=== PATIENT | male | born 1960 | race Caucasian/White ===

== ENCOUNTER 2016-05-03 14:44 | Emergency (ER) | payer SELFPAY ==
[~2016-05-03 14:44] MED LIST: MEDR4PAK3 PO
[2016-05-03 14:46] VITALS: BP 156/95; PULSE 91; RESP 18; TEMP 98.2; O2SAT 98
[2016-05-03] MEDS ORDERED: methylPREDNISolone SOD SUCC 125 MG/2 ML VIAL IM ONE (15:30)
--- NOTE | 2016-05-03 15:42 | PD ---
HPI Chief Complaint: Allergic/Adverse Reaction Time Seen by Provider: 15:37 Travel History International Travel<30 days: No Contact w/Intl Traveler<30days: No Traveled to known affect area: No History of Present Illness HPI Patient is a 55-year-old male presenting to the emergency department for evaluation of possible allergic reaction. Patient states he woke up this morning with throat tightness at approximately 7 AM. He denies any shortness of breath, cough, rash or itching. He states that he had trouble with allergies in the past however he states he is unsure exactly what he is allergic to. He reports that every 2-3 months he'll have swelling on his face or on his lips or break out in hives. This morning he just woke up with that feeling in his throat prior to eating or drinking anything. PFSH Past Medical History Medical History: Denies Significant Hx Past Surgical History Surgical History: No Previous Surgery Social History Tobacco Use: Yes Allergies-Medications (Allergen,Severity, Reaction): Coded Allergies: No Known Allergies (Unverified , 05/03/16) Reported Meds & Prescriptions Reported Meds & Active Scripts Active Benadryl Allergy (Diphenhydramine HCl) 25 Mg Tab 25 Mg PO Q6H PRN 5 Days Adrenaclick Inj Pack (Epinephrine) 0.3 Mg/0.3 Ml Pfpen 0.3 Mg IM ONCE PRN Deltasone (Prednisone) 20 Mg Tab 20 Mg PO BID 5 Days Review of Systems Except as stated in HPI: all other systems reviewed are Neg General / Constitutional: No: Fever HENT: Positive: Neck Pain (fullness) Respiratory: No: Cough, Shortness of Breath, Wheezing Musculoskeletal: No: Myalgias Skin: No Rash, No Itching, No Hives Physical Exam Narrative GENERAL: Well developed, well-nourished, alert male. Resting comfortably in no acute distress. SKIN: Warm and dry. HEAD: Atraumatic. Normocephalic. EYES: Pupils equal and round. No scleral icterus. No injection or drainage. ENT: No nasal bleeding or discharge. Mucous membranes pink and moist. NECK: Trachea midline. No JVD. CARDIOVASCULAR: Regular rate and rhythm. No murmur appreciated. RESPIRATORY: No accessory muscle use. Clear to auscultation. Breath sounds equal bilaterally. GASTROINTESTINAL: Abdomen soft, non-tender, nondistended. Hepatic and splenic margins not palpable. MUSCULOSKELETAL: No obvious deformities. No clubbing. No cyanosis. No edema. NEUROLOGICAL: Awake and alert. No obvious cranial nerve deficits. Motor grossly within normal limits. Normal speech. PSYCHIATRIC: Appropriate mood and affect; insight and judgment normal. Data Data Last Documented VS Vital Signs Date Time Temp Pulse Resp B/P Pulse Ox O2 Delivery O2 Flow Rate FiO2 05/03/16 19:08 63 20 122/75 99 05/03/16 17:47 Room Air 05/03/16 14:46 98.2 Orders Basic Metabolic Panel (Bmp) (05/03/16 15:30) Complete Blood Count With Diff (05/03/16 15:30) Methylprednisolone So Succ Inj (Solumedr (05/03/16 15:30) Diphenhydramine Inj (Benadryl Inj) (05/03/16 17:45) Famotidine Inj (Pepcid Inj) (05/03/16 17:45) Labs Laboratory Tests Test 05/03/16 15:40 White Blood Count 7.5 TH/MM3 Red Blood Count 4.79 MIL/MM3 Hemoglobin 14.2 GM/DL Hematocrit 41.3 % Mean Corpuscular Volume 86.2 FL Mean Corpuscular Hemoglobin 29.6 PG Mean Corpuscular Hemoglobin 34.3 % Concent Red Cell Distribution Width 13.9 % Platelet Count 304 TH/MM3 Mean Platelet Volume 9.2 FL Neutrophils (%) (Auto) 73.2 % Lymphocytes (%) (Auto) 20.1 % Monocytes (%) (Auto) 5.4 % Eosinophils (%) (Auto) 0.8 % Basophils (%) (Auto) 0.5 % Neutrophils # (Auto) 5.5 TH/MM3 Lymphocytes # (Auto) 1.5 TH/MM3 Monocytes # (Auto) 0.4 TH/MM3 Eosinophils # (Auto) 0.1 TH/MM3 Basophils # (Auto) 0.0 TH/MM3 CBC Comment DIFF FINAL Differential Comment Sodium Level 140 MEQ/L Potassium Level 4.6 MEQ/L Chloride Level 106 MEQ/L Carbon Dioxide Level 25.1 MEQ/L Anion Gap 9 MEQ/L Blood Urea Nitrogen 10 MG/DL Creatinine 0.97 MG/DL Estimat Glomerular Filtration 81 ML/MIN Rate Random Glucose 82 MG/DL Calcium Level 8.5 MG/DL MDM Medical Decision Making Medical Screen Exam Complete: Yes Emergency Medical Condition: Yes Interpretation(s) Vital Signs Date Time Temp Pulse Resp B/P Pulse Ox O2 Delivery O2 Flow Rate FiO2 05/03/16 14:46 98.2 91 18 156/95 98 Differential Diagnosis Seasonal allergies versus allergic reaction versus pharyngitis versus other Narrative Course Patient is a 55-year-old male presenting to the emergency evaluation of possible allergic reaction. Symptoms started at 7 AM prior to patient eating or drinking anything. He does report that his throat feels full but denies any other complaints at this time. Labs ordered and pending, Solu-Medrol IM ordered. Workup initiated triage, care patient will be transferred to provider when a medical bed is available. Scripts Diphenhydramine (Benadryl Allergy)25 Mg Tab25 Mg PO Q6H PRN (ALLERGIES) 5 Days Ref 0 Prov:Krystal Barry DO 05/03/16 Epinephrine Inj Pack (Adrenaclick Inj Pack)0.3 Mg/0.3 Ml Pfpen0.3 Mg IM ONCE PRN (ALLERGIC REACTION) #1 PACK Prov:Krystal Barry DO 05/03/16 Prednisone (Deltasone)20 Mg Tab20 Mg PO BID 5 Days Ref 0 Prov:Krystal Barry DO 05/03/16 Ketty Ramos May 03, 2016 15:42
[2016-05-03 15:54] LABS: AUTOMATED NEUTROPHIL # 5.5 TH/MM3 (1.8-7.7); BASOPHIL % 0.5 % (0.0-2.0); EOSINOPHIL # 0.1 TH/MM3 (0-0.4); EOSINOPHIL % 0.8 % (0.0-4.0); HEMATOCRIT 41.3 % (39.0-51.0); HEMO FLAGS DIFF FINAL; LYMPH % 20.1 % (9.0-44.0); LYMPHOCYTE # 1.5 TH/MM3 (1.0-4.8); MEAN CELL VOLUME 86.2 FL (80.0-100.0); MEAN CORPUSCULAR HEMOGLOBIN 29.6 PG (27.0-34.0); MEAN CORPUSCULAR HGB CONC 34.3 % (32.0-36.0); MONO % 5.4 % (0.0-8.0); NEUT % 73.2 % (16.0-70.0); PLATELET COUNT 304 TH/MM3 (150-450); RED BLOOD COUNT 4.79 MIL/MM3 (4.50-5.90); RED CELL DISTRIBUTION WIDTH 13.9 % (11.6-17.2); WHITE BLOOD COUNT 7.5 TH/MM3 (4.0-11.0)
[2016-05-03 16:16] LABS: BICARBONATE 25.1 MEQ/L (21.0-32.0); POTASSIUM 4.6 MEQ/L (3.5-5.1)
--- NOTE | 2016-05-03 17:40 | PD ---
Physical Exam Narrative Pt was initially seen in triage and transferred to medical bed. 55yo M with no PMH presents to the ED with c/o swelling and tightness in his throat when he woke up at 7am this morning. Pt was given methylprednisolone 125mg IM and states symptoms has improved. Pt states he gets this intermittently since 2012 and does not know what is causing these reactions. Denies any chest pain, sob, lip or tongue swelling, abdominal pain, rash. Pt is well appearing and is speaking in complete sentences. Throat exam is unremarkable with no uvula swelling and it is midline. Lungs are clear. Abdomen is soft and nontender. Will give diphenhydramine 50mg IV and famotidine 20mg IV. Do not feel epinephrine is warranted at this time as symptoms has almost resolved completely. Pt reevaluated at bedside and feels much better. States tightness in throat has completely resolved. Denies any chest pain or sob and wants to go home. Physical exam unremarkable. Return precautions given. Data Data Last Documented VS Vital Signs Date Time Temp Pulse Resp B/P Pulse Ox O2 Delivery O2 Flow Rate FiO2 05/03/16 17:47 60 18 99 Room Air 05/03/16 14:46 98.2 156/95 Orders Basic Metabolic Panel (Bmp) (05/03/16 15:30) Complete Blood Count With Diff (05/03/16 15:30) Methylprednisolone So Succ Inj (Solumedr (05/03/16 15:30) Diphenhydramine Inj (Benadryl Inj) (05/03/16 17:45) Famotidine Inj (Pepcid Inj) (05/03/16 17:45) Labs Laboratory Tests Test 05/03/16 15:40 White Blood Count 7.5 TH/MM3 Red Blood Count 4.79 MIL/MM3 Hemoglobin 14.2 GM/DL Hematocrit 41.3 % Mean Corpuscular Volume 86.2 FL Mean Corpuscular Hemoglobin 29.6 PG Mean Corpuscular Hemoglobin 34.3 % Concent Red Cell Distribution Width 13.9 % Platelet Count 304 TH/MM3 Mean Platelet Volume 9.2 FL Neutrophils (%) (Auto) 73.2 % Lymphocytes (%) (Auto) 20.1 % Monocytes (%) (Auto) 5.4 % Eosinophils (%) (Auto) 0.8 % Basophils (%) (Auto) 0.5 % Neutrophils # (Auto) 5.5 TH/MM3 Lymphocytes # (Auto) 1.5 TH/MM3 Monocytes # (Auto) 0.4 TH/MM3 Eosinophils # (Auto) 0.1 TH/MM3 Basophils # (Auto) 0.0 TH/MM3 CBC Comment DIFF FINAL Differential Comment Sodium Level 140 MEQ/L Potassium Level 4.6 MEQ/L Chloride Level 106 MEQ/L Carbon Dioxide Level 25.1 MEQ/L Anion Gap 9 MEQ/L Blood Urea Nitrogen 10 MG/DL Creatinine 0.97 MG/DL Estimat Glomerular Filtration 81 ML/MIN Rate Random Glucose 82 MG/DL Calcium Level 8.5 MG/DL MDM Supervised Visit with FELIX: Yes Diagnosis Primary Impression: Allergic reaction Qualified Code: T78.40XA - Allergic reaction, initial encounter Patient Instructions: General Instructions Departure Forms: Tests/Procedures Additional Instruction: Please follow up with your PMD in 1-2 days. Return to the ED if symptoms worsen. Med/Other Pt SpecificInfo: Prescription(s) given Scripts Diphenhydramine (Benadryl Allergy)25 Mg Tab25 Mg PO Q6H PRN (ALLERGIES) 5 Days Ref 0 Prov:Krystal Barry DO 05/03/16 Epinephrine Inj Pack (Adrenaclick Inj Pack)0.3 Mg/0.3 Ml Pfpen0.3 Mg IM ONCE PRN (ALLERGIC REACTION) #1 PACK Prov:Krystal Barry DO 05/03/16 Prednisone (Deltasone)20 Mg Tab20 Mg PO BID 5 Days Ref 0 Prov:Krystal Barry DO 05/03/16 Disposition: 01 DISCHARGE HOME Condition: Stable Krystal Barry DO May 03, 2016 17:40
[2016-05-03] MEDS ORDERED: diphenhydrAMINE HCL 50 MG/ML VIAL IV PUSH ONE (17:45)
[2016-05-03] MEDS ORDERED: FAMOTIDINE 20 MG/2 ML VIAL IV PUSH ONE (17:45)
[2016-05-03] MEDS ORDERED: PRED-503 PO (18:57)
[2016-05-03] MEDS ORDERED: [UNRECOGNIZED DRUG - CODE] IM (18:57)
[2016-05-03] MEDS ORDERED: BENA25TA3 PO (18:57)
[2016-05-03 19:08] VITALS: BP 122/75
== END 2016-05-03 19:50 | disposition home or self-care (01) ==
LOC: NEPA 14:44
DX: T78.40XA Allergy, unspecified, initial encounter (principal); X58.XXXA Exposure to other specified factors, initial encounter
CPT/HCPCS: 80048; 85025; 96372; 96374; 96375; 99283; J1200; J2930